=== PATIENT | male | born 1955 | race Caucasian/White ===

== ENCOUNTER 2024-05-23 08:25 | Emergency (ER) | payer MEDICARE, BC, SELFPAY ==
[2024-05-23 08:35] VITALS: BP 143/59; PULSE 74; RESP 16; TEMP 36.3; O2SAT 100
--- NOTE | 2024-05-23 08:48 | ED.SKABFB ---
HPI - Skin/Abscess/Foreign Bdy General Chief complaint: Skin/Abscess/Foreign Body Stated complaint: Right Leg/Skin Problem Time Seen by Provider: 05/23/24 08:49 Source: patient and RN notes reviewed Mode of arrival: ambulatory Limitations: no limitations History of Present Illness HPI narrative: 68-year-old male presents with concern for area of redness, tenderness, swelling to his right inner leg near his knee. He reports he has had issues of varicose veins in the past. He denies any injury or trauma to the area. Denies open skin. Denies itching. Reports that is uncomfortable but tender to touch. He denies fever, body aches, chills, sweats. MD complaint: other (redness and tenderness) Related Data Home Medications Medication Instructions Recorded Confirmed lisinopril 10 mg tablet mg 05/23/24 simvastatin 80 mg tablet mg 05/23/24 Allergies Allergy/AdvReac Type Severity Reaction Status Date / Time No Known Allergies Allergy Verified 05/23/24 08:38 Review of Systems Review of Systems: CONSTITUTIONAL: Denies malaise, chills, sweats, or fever. EYES: Denies redness, or discharge. CARDIOVASCULAR: Denies chest pain, palpitations, or edema. RESPIRATORY: Denies cough or dyspnea. SKIN: Reports area of redness, tenderness to the left leg MUSCULOSKELETAL: Denies joint pain or myalgia. NEUROLOGIC: Denies headache. All systems reviewed & are unremarkable except as noted in HPI and below PMFSH Comments At time of signature, agree with nursing past medical, surgical, social and family history. There is no relevant family history pertinent to the presenting complaint Exam Narrative: GENERAL: Well-appearing, well-nourished, and in no acute distress. HEAD: Normocephalic, atraumatic. EYES: PERRLA, conjunctivae clear, and EOMI. ENT: Mucous membranes moist. NECK: Supple. No lymphadenopathy CHEST: Clear to auscultation. No respiratory distress. HEART: Regular rate and rhythm. SKIN: Warm, dry. Palpable varicose veins with surrounding induration, erythema, tenderness noted to the medial right leg above the knee, 1 small similar area below the knee noted NEURO: Alert and oriented x3. PSYCH: Normal mood and affect Course Course Emergency Course: Patient is aware of diagnosis, understands and agrees to treatment plan. Anticipatory guidance given. Patient agrees to follow-up as directed and is aware of reasons to seek care at the emergency department. Portions of this record may have been created with voice recognition software Level of Care: Express Care Visit Vital Signs Vital signs: Vital Signs Temperature 97.4 F L 05/23/24 08:35 Pulse Rate 74 05/23/24 08:35 Respiratory Rate 16 05/23/24 08:35 Blood Pressure 143/59 H 05/23/24 08:35 Pulse Oximetry 100 05/23/24 08:35 Oxygen Delivery Room Air 05/23/24 08:35 Temperature 97.4 F L 05/23/24 08:35 Pulse Rate 74 05/23/24 08:35 Respiratory Rate 16 05/23/24 08:35 Blood Pressure 143/59 H 05/23/24 08:35 Pulse Oximetry 100 05/23/24 08:35 Oxygen Delivery Room Air 05/23/24 08:35 Reviewed. MDM - Skin/Abscess/Foreign Bdy MDM Narrative Medical decision making narrative: Does not appear at this time to be erythema multiforme, bullous, SJS, TEN; no evidence at this time to suggest RMSF, endocarditis or Lyme disease; patient looks well, nontoxic and is tolerating oral intake; no neurologic signs or symptoms; no headache, photophobia or neck pain; afebrile; appropriate for initial outpatient treatment; discussed the importance of follow-up, patient agrees; question, viral exanthema, contact dermatitis, allergic dermatitis, eczema, urticaria, cellulitis, phlebitis, thrombophlebitis. No soft palate or uvula edema, no tongue, lip edema or other mucosal involvement, no respiratory compromise, no stridor, no wheezing, no wheezing, no history of syncope, no hypotension, no nausea, vomiting, or diarrhea. Instructed patient to go to nearest ER imm
== END 2024-05-23 09:02 | disposition home or self-care (01) ==
PROVIDERS: Emergency Provider Nurse Practitioner; PCP Hospitalist
DX: I80.01 Phlebitis and thrombophlebitis of superficial vessels of right lower extremity (principal); E78.00 Pure hypercholesterolemia, unspecified; I10 Essential (primary) hypertension
CPT/HCPCS: 99203; G0463

== ENCOUNTER 2025-02-15 09:20 | Emergency (ER) | payer MEDICARE, BC, SELFPAY ==
--- OUTSIDE RECORDS SUMMARY | 2025-02-16 13:55 | XMS_ITS | Referral Summary ---
Author Organization [facility] Address [address] [place] [phone] Phone Care Team Providers Care Underwriting Service Representative Name Role Phone Jono Fuller MD Primary Care Provider [phone] Allergies No known active allergies Medications cholecalcifero l (VITAMIN D-3) 25 mcg (1,000 unit) tablet Take 2 tablets (2,000 Units total) by mouth daily 8 Active ibuprofen (ADVIL,MOTRIN) 600 mg tablet Take 1 tablet (600 mg total) by mouth as needed 4 Active simvastatin (ZOCOR) 80 mg tablet TAKE 1 TABLET(80 MG) BY MOUTH DAILY 100 tablet 1 5 Active tadalafiL (CIALIS) 20 mg tablet Take 1 tablet (20 mg total) by mouth daily as needed for erectile dysfunction 30 tablet 3 5 03/06/20 25 Active lisinopriL (PRINIVIL,ZEST RIL) 10 mg tablet Take 1 tablet (10 mg total) by mouth daily 90 tablet 1 5 Active tadalafiL (CIALIS) 20 mg tablet Take 1 tablet (20 mg total) by mouth daily as needed for erectile dysfunction 30 tablet 3 4 02/05/20 25 Discontin ued(Reord er) lisinopriL (PRINIVIL,ZEST RIL) 10 mg tablet Take 1 tablet (10 mg total) by mouth daily 90 tablet 5 02/05/20 25 Discontin ued(Reord er) Active Problems Problem Noted Date Diagnosed Date Pain in right leg 06/05/2024 Assessment & Plan (06/05/2024 9:17 AM CDT): R medial thigh. Varicosities. Risk factors of sedentary lifestyle and tobacco use. DDx of recurrent superficial phlebitis vs. superficial DVT vs. possible malignancy (less likely) Plan: US ordered 06/05. Return precautions given. Superficial phlebitis 06/05/2024 Assessment & Plan (06/05/2024 9:17 AM CDT): See A&P for R leg pain Encounter for Medicare annual wellness exam 05/18 Assessment & Plan (06/05/2024 9:19 AM CDT): Reassuring exam today. Plan: Provided forms for advance directive planning. F/u 1 yr of prn Other situational type phobia - driving 05/25/20 Assessment & Plan (05/25/2022 11:08 AM CDT): Discussed with patient, patient reports symptoms with driving, somewhat related around concern for weakness of legs and ability to maintain pressure on brake pedal, fear of imbalance at train station Discussed that patient may benefit from talk therapy; liver options include medical therapy, though patient would prefer to reduce medications Acute bilateral low back pain without sciatica 0 11/22/2016 Overview (11/25/2021): 12/03 ARR MRI, NSURG 12/03 MRI LSPINE->At L4-5 there is mild disc desiccation and mild disc space narrowing with prominent disc bulging and a more focal central and left-sided disc protrusion. There is moderate facet disease. There is prominent thecal sac compression with moderate lateral recess and foraminal stenosis, worse to the left. Neck pain 11/22/2016 Overview (11/25/2021): 12/03 ARR MRI, NSURG 12/03 MRI CSPINE->Patient has had anterior cervical fusion from C4 to C7. There is degenerative retrolisthesis of C3 on C4 associated with cord compressing stenosis and focal signal abnormality in the cord. Vitamin B12 deficiency (non anemic) 02/27/2016 Overview (11/25/2021): 03/01 B12 LOW-NL (323)->- PLAN CONT'D MONITORING 01/31 B12 LOW-NL (341) 03/03 B12 323->- PLAN CONT'D MONITORING 03/04 B12 333 06/05 B12 394 Vitamin D deficiency 02/27/2016 Overview (11/25/2021): 03/01 VIT D LOW (9)->START VIT D 2000 UNITS DAILY 01/31 D LOW (14)->INCR TO 4000 02/01 D 25->INCR TO 2K 03/04 D 34 Prediabetes 02/06/2012 Overview (11/25/2021): FBS -- 01/26 103 -- 03/30 113 -- 03/31 99 -- 01/31 113 -- 03/03 99 -- 03/04 108 -- 06/05 116 A1C -- 03/03 5.7 Assessment & Plan (11/29/2023 12:36 PM RETAIL LOAN ORIGINATOR ASSISTANT): Stable, well controlled; most recent CMP demonstrated serum glucose at 1:05 a.m. which is mildly prediabetic Will continue to monitor Benign hypertension 10/27/2011 Overview (11/25/2021): RECOMMENDED HOME MONITORING TO SBP GOAL <140 AND DBP GOAL <90 Assessment & Plan (06/05/2024 9:06 AM CDT): Chronic. Stable. Plan: Continue Lisinopril 10mg daily Recommend smoking cessation Assessment & Plan (11/29/2023 12:35 PM RETAIL LOAN ORIGINATOR ASSISTANT): Stable, well controlled; blood pressure at goal; no chest pain or pressure Continue lisinopril 10 mg daily Assessment & Plan (05/26/2023 9:46 AM CDT): Stable, well controlled, blood pressure at goal today Continue lisinopril 10 mg daily Assessment & Plan (11/26/2022 3:28 PM RETAIL LOAN ORIGINATOR ASSISTANT): Stable, well contorlled; bp at target Continue lisionpril 10 mg daily Assessment & Plan (05/25/2022 11:07 AM CDT): Stable, blood pressure mildly elevated on initial check, as well as on recheck; patient reports no headaches, chest pain under symptoms No side effects from medication Continue quinapril 20 mg daily Blood Pressure Follow-up: Lifestyle modifications education provided on sodium reduction, increase physical activity, weight reduction and smoking cessation. Assessment & Plan (12/15/2021 2:00 PM RETAIL LOAN ORIGINATOR ASSISTANT): Well controlled; blood pressure at target today No episodes orthostatics, chest pain or headaches Continue quinapril 20 mg daily Degeneration of cervical intervertebral disc 08/2012 Overview (11/25/2021): 2004 S/P C SPINE DECOMPRESSION Erectile dysfunction due to arterial insufficien cy 10/27/2011 Overview (11/25/2021): MANAGING WITH VIAGRA 10/28 ARRANGED LABS, SAMPLED CIALIS 01/26 TESTOSTERONE 254 (NL 200-800) / PROLACTIN NL / TSH NL Assessment & Plan (06/05/2024 9:09 AM CDT): Previous testosterone, prolactin & TSH wnl. Risk factors of HTN, tobacco use and prior dyslipidemia. Plan: Recommend smoking cessation Continue Tadalafil 20mg daily prn Assessment & Plan (11/29/2023 12:35 PM RETAIL LOAN ORIGINATOR ASSISTANT): Stable, well controlled; good response to Cialis 20 mg; will refill today Assessment & Plan (05/26/2023 9:46 AM CDT): Well controlled with cialis Continue Cialis 20 mg daily as needed Assessment & Plan (11/26/2022 3:28 PM RETAIL LOAN ORIGINATOR ASSISTANT): Continues to have ED at baseline, good response to PDE5 inhibitors Start tadalafil 20 mg prn Hyperlipidemia LDL goal <130 10/27/2011 Overview (11/25/2021): 01/26 TOTAL 126 - LDL 65 - HDL 43 - TG 90->ON SIMVASTATIN 80 MG DAILY 01/31 [id number] 03/03 [id number] 03/04 [id number] 06/05 [id number] Assessment & Plan (06/05/2024 9:07 AM CDT): Chronic. 06/01 LDL at goal <70. Plan: Continue simvastatin 80mg daily Assessment & Plan (11/29/2023 12:35 PM RETAIL LOAN ORIGINATOR ASSISTANT): Stable, well controlled; LDL at goal; HDL low Continue simvastatin 80 mg daily Assessment & Plan (05/26/2023 9:46 AM CDT): Most recent lipid panel demonstrated elevated triglycerides of low HDL; LDL go, decreased from prior Patient given education to help increase HDL cholesterol; which also help with triglyceride levels Assessment & Plan (11/26/2022 3:27 PM RETAIL LOAN ORIGINATOR ASSISTANT): Stable, well controlled; LDL at target; no side effects from medication Continue Simvastatin 80 mg daily Assessment & Plan (05/25/2022 11:10 AM CDT): Well controlled, lipids in triglycerides at target Continue simvastatin 80 mg daily Assessment & Plan (12/15/2021 4:38 PM RETAIL LOAN ORIGINATOR ASSISTANT): Stable, well controlled; continue simvastatin 80 mg daily Tobacco use disorder 10/27/2011 Overview (11/25/2021): 10/28 COUNSELED TO QUIT Assessment & Plan (06/05/2024 9:10 AM CDT): Chronic. 1ppd. Pt differs trial of cessation at this time. Plan: Supportive care Recommend tobacco use cessation. Assessment & Plan (11/29/2023 12:35 PM RETAIL LOAN ORIGINATOR ASSISTANT): Not well controlled; continues to smoke about 1 pack per day; has some thoughts on quitting, but no serious plans at this time Patient recognizes that breathing and coughing would be improved with quitting Has quit prior for 7 months; but restarted; patient endorses that smokes in the home which makes quitting more difficult Continue to encourage work towards smoking cessation; discussed lung cancer screening options with patient Assessment & Plan (05/26/2023 8:36 AM CDT): Continues to smoke; getting closer Cutting back; now in mindset of being tired of smoking -no particular changes -working on habits, has game plan to quit while is traveling Assessment & Plan (11/26/2022 3:30 PM RETAIL LOAN ORIGINATOR ASSISTANT): Not well controlled; continues to smoke about 15 cigarettes per day -has some thoughts in back of head regarding cessation Discussed health benefits of smoking cessation, including improved blood pressure control and improvement in ED Patient still thinking about Lung Cancer Screening Assessment & Plan (05/25/2022 11:09 AM CDT): Discussed efforts to quit in order to reduce long-term health risk associated with tobacco use Patient is working on cutting back, not ready for any medical therapy at this time Will continue to monitor and encourage healthy changes Discussed with patient lung cancer screening, this time patient would like to think about further imaging Assessment & Plan (12/15/2021 4:39 PM RETAIL LOAN ORIGINATOR ASSISTANT): To smoke about 1/2 pack per day; has difficulty with quitting, has tried cold turkey in the past with no success; use of nicotine gum with some relief Encouraged patient continue to work on smoking cessation, will continue discussed with patient would benefit from nicotine replacement therapy Immunizations Immunization Administration Dates Next Due Influenza, Quadrivalent, Spl it, Preservative Free, Intramuscular 07/08/2020 Influenza, Trivalent, IM (MDV) ,07/17/2016,07/17/2015,07/17,08/02/2013,07/26/2012,09/16/2011 Influenza, Unspecified 01/05/2024(Deferr ed: Patient Refused),07/27/2023(Deferred: Patient Refused),06/17/2022 Pneumococcal Conjugate Pcv20 11/25/2022 Social History Tobacco Use Types Packs/Day Years Used Date Smoking Tobacco: Every Day Cigarettes 0.8 25 Smokeless Tobacco: Never Tobacco Cessation:Ready to Q uit: Not Asked; Counseling Given: Not Answered AUDIT-C Answer Date Recorded Q1: How often do you have a drink containing alc ohol? 2-4 times a month 11/25/2022 Q2: How many drinks containi ng alcohol do you have on a typical day when you are drinking? 3 or 4 11/25/2022 Frequency of Binge Drinking Not on file 06/2023 PHQ-2 Answer Date Recorded PHQ-2 Total Score (If total score is 3 or more points, staff should administer the PHQ-9) 0 06/05/2024 Exercise Vital Sign Answer Date Recorde d On average, how many days pe r week do you engage in moderate to strenuous exercise (like a brisk walk)? 0 days 11/25/2022 On average, how many minutes do you engage in exercise at this level? 0 min 11/25/2022 Personal Safety Answer Date Recorded Getting School Help Needed Not on file 10/21 Sex and Gender Information Value Date Recorded Sex Assigned at Not on file Legal Sex Male 4:01 PM RETAIL LOAN ORIGINATOR ASSISTANT Gender Identity Not on file Sexual Orientation Not on file Last Filed Vital Signs Vital Sign Reading Time Taken Comments Blood Pressure 120/70 06/05/2024 8:20 AM CDT Pulse 72 06/05/2024 8:20 AM CDT Temperature 36.6 C (97.8 F) 06/05/2024 8:20 AM CDT Respiratory Rate 16 06/05/2024 8:20 AM CDT Oxygen Saturation 98% 06/05/2024 8:20 AM CDT Inhaled Oxygen Concentration - - Weight 88.9 kg (196 lb) 06/05/2024 8:20 AM CDT Height 177.8 cm (5' 10 ) 06/05/2024 8:20 AM CDT Body Mass Index 28.12 06/05/2024 8:20 AM CDT Plan of Treatment Not on file Procedures Procedure Name Priority Date/Time Associated Diagnosis Comments PSA SCREEN Routine 06/01/2024 9:25 AM CDT Screening PSA (prostate specific antigen) US ABDOMINAL AORTIC ANEURYSM SCREENING Schedule Routine, Read Routine (OP Routine) 08/02/2023 8:11 AM CDT Tobacco use disorder HEPATITIS C ANTIBODY Routine 11/25/2021 12:30 PM RETAIL LOAN ORIGINATOR ASSISTANT COLONOSCOPY Routine 06/02/2020 from Last 3 Months or Most Recently Relevant to Health Maintenance Results * PSA screen (06/01/2024 9:25 AM CDT) PSA-Total 0.42 <=5.40 ng/mL Comment: Interpretive Data AGE SEX REFERENCE INTERVAL 0 minutes-150 years Female None 0 minutes-49 years Male None 50-59 years Male 0-3.90 60-69 years Male 0-5.40 70-79 years Male 0-6.20 80-150 years Male 0-6.20 The Mary PSA Total assay procedure was used. Results from different manufacturers or methods may not be comparable. Serial testing should be performed using the same method. Current interpretive data last revised 22. Testing performed by: [facility], [address] [place] [address], [place]., [address] Blood 06/01/2024 9:25 AM CDT 06/01/2024 1:11 PM CDT us Jono Fuller MD LAB BLOOD ORDERABLES Tiffanie giles Result MIGDALIA ALEMAN (NUNN) 1 [facility] Department of [employer] [place] [address] * US Abdominal Aortic Aneurysm Screening (08/02/2023 8:11 AM CDT) Anatomical Region Laterality Modality Abdomen Ultrasound 08/02/2023 9:23 AM CDT Narrative 08/02/2023 9:24 AM CDT EXAM DESCRIPTION: US ABDOMINAL AORTIC ANEURYSM SCREENING REASON FOR STUDY: history of tobaco use TECHNIQUE: Grayscale images acquired of the aorta and stored on PACS. Selected color Doppler and spectral images recorded. COMPARISON: None. FINDINGS: AORTIC CALIBER MAXIMAL PROXIMAL: 3.2 cm. MID: 2.1 x 1.7 cm. DISTAL: 1.7 x 1.7 cm. ILIAC DIAMETER RIGHT: 1.2 x 1.4 cm. LEFT: 1.1 x 1.3 cm. OTHER: No other significant finding. IMPRESSION: Mild dilation of the proximal abdominal aorta. REFERENCE: Please see below follow up recommendations for abdominal aortic aneurysm surveillance per Society for Vascular Surgery Guidelines: < 2.5 cm No follow up necessary 2.52.9 cm Recommended ultrasound follow up every 10 years 3.0-3.9 cm Recommended ultrasound follow up every 3 years 4.0-4.9 cm Recommended ultrasound follow up every 12 months, vascular surgery consult 5.0-5.4 cm Recommended ultrasound follow up every 6 months, vascular surgery consult >= 5.5 cm Referral to vascular surgeon Based upon Society for Vascular Surgery Guidelines: J Vasc Surgery 2008 50: [id number]; updated Oct 2017 J Vasc Surgery 67:277 THIS IS AN ELECTRONICALLY VERIFIED FINAL REPORT 08/02/2023 9:24 AM - Electronically signed by Tal Grant M.D. CH: Report ID: [id number] Reading Location: [id number] Procedure Note Tal Grant Jr., MD - 08/02/2023 EXAM DESCRIPTION: US ABDOMINAL AORTIC ANEURYSM SCREENING REASON FOR STUDY: history of tobaco use TECHNIQUE: Grayscale images acquired of the aorta and stored on PACS.Selected color Doppler and spectral images recorded. COMPARISON: None. FINDINGS: AORTIC CALIBER MAXIMAL PROXIMAL: 3.2 cm. MID: 2.1 x 1.7 cm. DISTAL: 1.7 x 1.7 cm. ILIAC DIAMETER RIGHT: 1.2 x 1.4 cm. LEFT: 1.1 x 1.3 cm. OTHER: No other significant finding. IMPRESSION: Mild dilation of the proximal abdominal aorta. REFERENCE: Please see below follow up recommendations for abdominal aortic aneurysm surveillance per Society for Vascular Surgery Guidelines: < 2.5 cm No follow up necessary 2.52.9 cm Recommended ultrasound follow up every 10 years 3.0-3.9 cm Recommended ultrasound follow up every 3 years 4.0-4.9 cm Recommended ultrasound follow up every 12 months, vascularsurgery consult 5.0-5.4 cm Recommended ultrasound follow up every 6 months, vascularsurgery consult >= 5.5 cm Referral to vascular surgeon Based upon Society for Vascular Surgery Guidelines: J Vasc Surgery 2009Oct 50: [id number]; updated Oct 2017 J Vasc Surgery 67:277 THIS IS AN ELECTRONICALLY VERIFIED FINAL REPORT 08/02/2023 9:24 AM - Electronically signed by Tal Grant M.D. CH: Report ID: [id number] Reading Location: [place] [id number] us Jono Fuller MD [facility]ED[place] Final R esult * Hepatitis C antibody (11/25/2021 12:30 PM RETAIL LOAN ORIGINATOR ASSISTANT) Hep C Ab Nonreactive Nonreactive MIGDALIA ALEMAN (CHARLI) Comment: Interpretive Data Nonreactive: Antibodies to HCV not detected. Does NOT exclude the possibility of recent exposure to HCV. Equivocal: Equivocal for HCV antibodies. Supplemental molecular testing will be automatically performed to determine infection status in accordance with current CDC screening recommendations. Reactive: Positive for HCV antibodies. This may represent current or past HCV infection. Supplemental molecular testing will be automatically performed to determine current infection status in accordance with current CDC screening recommendations. Interpretive data was last revised on 2020. Testing performed by: [facility], [address] [place] [address], [place]., [address] Blood 11/25/2021 12:3 0 PM RETAIL LOAN ORIGINATOR ASSISTANT 11/25/2021 2:58 PM RETAIL LOAN ORIGINATOR ASSISTANT us Jono Fuller MD LAB MICROBIOLOGY - GENERA L ORDERABLES Edited Result - Final [facility] CHARLI) 1 [facility] [place] [address] * Colonoscopy (06/02/2020) Anatomical Region Laterality Modality Other us Historical Provider ENDOSCOPY PROCEDURES Tiffanie l Result from Last 3 Months or Most Recently Relevant to Health Maintenance Insurance [facility] [employer] MEDICARE MEDICARE [facility] [place] [address] [place] [address] MEDICARE [facility] [employer] Care Teams Underwriting Service Representative Relationship Specialty Start Date End Date [place] [id number] PCP - General Family Medicine 09/22/21
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
--- OUTSIDE RECORDS SUMMARY | 2025-02-16 13:55 | XMS_ITS | Clinical Summary ---
Author Organization [facility] Address [address] [place] [address] Care Team Providers Care Scrap Bunch Maker Name Role Phone Tavares Sanders MD Unavailable [phone] Naeem Chau MD Primary Care Provider [phone] Source Comments [facility],non-owned Affiliates and Associated Physician Practices is amultiple site organization consisting of ambulatory clinics and hospital sitesin [place], [place], [place] and [place]. This disclosure is being madepursuant to the Care Everywhere program and may not contain all information available regarding this patient. Last updated 18.[facility] Medications * Be aware that medications may not be up to date on this document. Alwaysverify current medications with the patient. quinapril (ACCUPRIL) 20 MG tablet Take 20 mg by mouth once daily. Active simvastatin (ZOCOR) 80 MG tablet Take 80 mg by mouth at bedtime. Active Social History Tobacco Use Types Packs/Day Years Used Date Smoking Tobacco: Every Day Alcohol Use Standard Drinks/Week Comments Yes 0 (1 standard drink = 0.6 oz pur e alcohol) Sex and Gender Information Value Date Recorded Sex Assigned at Not on file Legal Sex Male 1:50 PM EXAMINER RATING CLERK Gender Identity Not on file Sexual Orientation Not on file Last Filed Vital Signs Vital Sign Reading Time Taken Comments Blood Pressure - - Pulse - - Temperature - - Respiratory Rate - - Oxygen Saturation - - Inhaled Oxygen Concentration - - Weight 90.7 kg (200 lb) 04/27/2012 9:43 AM CDT Height 177.8 cm (5' 10 ) 04/27/2012 9:43 AM CDT Body Mass Index 28.7 04/27/2012 9:43 AM CDT Plan of Treatment Health Maintenance Due Date Last Done Comments COLOGUARD (AGES 45-75) - COL ON CA SCREENING 1955 COLON MONITORING 1955 COLONOSCOPY - COLON CA SCREENING [address] CT COLONOGRAPHY - COLON CA SCREENING 1957 Colorectal Cancer Screening 1957 FIT - COLON CA SCREENING 1957 FLEX SIG - COLON CA SCREENING 1957 HEPATITIS C SCREENING 06/26/1975 DTAP/TDAP/TD VACCINES (1 - Tdap) 1976 PNEUMOCOCCAL VACCINE 50+ (1 of 1 - PCV) 2007 ZOSTER VACCINE (1 of 2) 2007 AAA SCREENING 2022 COVID-19 VACCINE ( - 2023-2 5 season) 2024 DEPRESSION SCREENING 10/17/2024 INFLUENZA VACCINE (Season Ended) 2025 Respiratory Syncytial Virus (RSV) Vaccine Pt: or over 60 yrs (1 - 1-dose 75+ series) 2032 HEPATITIS B VACCINE Aged Out No longe r eligible based on patient's age to complete this topic HIB VACCINE Aged Out No longer eligi ble based on patient's age to complete this topic HPV VACCINE Aged Out No longer eligi ble based on patient's age to complete this topic MENINGOCOCCAL (Group B) VACC INE SHARED DECISION-MAKING Aged Out No longer eligibl e based on patient's age to complete this topic MENINGOCOCCAL GROUPS A/C/Y/W VACCINE Aged Out No longer eligible b ased on patient's age to complete this topic Insurance [facility] Care Teams Scrap Bunch Maker Relationship Specialty Start Date End Date Naeem Chau MD [address] [place] [address] PCP - General Internal Medicine 04/27/12 Tavares Sanders MD Orthopedic Surgery 04/27/12
--- OUTSIDE RECORDS SUMMARY | 2025-02-16 13:55 | XMS_ITS | Clinical Summary ---
Author Organization [facility] Address [address] [place] [id number] Phone Care Team Providers Care Forming Yardage Control Operator Name Role Phone Jono Fuller MD Primary Care Provider [phone] Allergies No known active allergies Medications cholecalcifero [...] 5.7 Assessment & Plan (11/29/2023 12:36 PM ASSEMBLER CATERPILLAR SPIDER): Stable, well controlled; most recent CMP demonstrated serum glucose at 1:05 a.m. which is mildly prediabetic Will continue to monitor Benign hypertension 10/27/2011 Overview (11/25/2021): RECOMMENDED HOME MONITORING TO SBP GOAL <140 AND DBP GOAL <90 Assessment & Plan (06/05/2024 9:06 AM CDT): Chronic. Stable. Plan: Continue Lisinopril 10mg daily Recommend smoking cessation Assessment & Plan (11/29/2023 12:35 PM ASSEMBLER CATERPILLAR SPIDER): Stable, well controlled; blood pressure at goal; no chest pain or pressure Continue lisinopril 10 mg daily Assessment & Plan (05/26/2023 9:46 AM CDT): Stable, well controlled, blood pressure at goal today Continue lisinopril 10 mg daily Assessment & Plan (11/26/2022 3:28 PM ASSEMBLER CATERPILLAR SPIDER): Stable, well contorlled; bp at target Continue [...] cessation. Assessment & Plan (12/15/2021 2:00 PM ASSEMBLER CATERPILLAR SPIDER): Well controlled; blood pressure at target today [...] prn Assessment & Plan (11/29/2023 12:35 PM ASSEMBLER CATERPILLAR SPIDER): Stable, well controlled; good response to Cialis 20 mg; will refill today Assessment & Plan (05/26/2023 9:46 AM CDT): Well controlled with cialis Continue Cialis 20 mg daily as needed Assessment & Plan (11/26/2022 3:28 PM ASSEMBLER CATERPILLAR SPIDER): Continues to have ED at baseline, good response to PDE5 inhibitors Start tadalafil 20 mg prn Hyperlipidemia LDL goal <130 10/27/2011 Overview (11/25/2021): 01/26 TOTAL 126 - LDL 65 - HDL 43 - TG 90->ON SIMVASTATIN 80 MG DAILY 01/31 [id number] 03/03 [id number] 03/04 [id number] 06/05 [id number] Assessment & Plan (06/05/2024 9:07 AM CDT): Chronic. 06/01 LDL at goal <70. Plan: Continue simvastatin 80mg daily Assessment & Plan (11/29/2023 12:35 PM ASSEMBLER CATERPILLAR SPIDER): Stable, well controlled; LDL at goal; HDL low Continue simvastatin 80 mg daily Assessment & Plan (05/26/2023 9:46 AM CDT): Most recent lipid panel demonstrated elevated triglycerides of low HDL; LDL go, decreased from prior Patient given education to help increase HDL cholesterol; which also help with triglyceride levels Assessment & Plan (11/26/2022 3:27 PM ASSEMBLER CATERPILLAR SPIDER): Stable, well controlled; LDL at target; no side effects from medication Continue Simvastatin 80 mg daily Assessment & Plan (05/25/2022 11:10 AM CDT): Well controlled, lipids in triglycerides at target Continue simvastatin 80 mg daily Assessment & Plan (12/15/2021 4:38 PM ASSEMBLER CATERPILLAR SPIDER): Stable, well controlled; continue simvastatin 80 mg daily Tobacco use disorder 10/27/2011 Overview (11/25/2021): 10/28 COUNSELED TO QUIT Assessment & Plan (06/05/2024 9:10 AM CDT): Chronic. 1ppd. Pt differs trial of cessation at this time. Plan: Supportive care Recommend tobacco use cessation. Assessment & Plan (11/29/2023 12:35 PM ASSEMBLER CATERPILLAR SPIDER): Not well controlled; continues to smoke about [...] traveling Assessment & Plan (11/26/2022 3:30 PM ASSEMBLER CATERPILLAR SPIDER): Not well controlled; continues to smoke about [...] imaging Assessment & Plan (12/15/2021 4:39 PM ASSEMBLER CATERPILLAR SPIDER): To smoke about 1/2 pack per day; [...] Refused),07/27/2023(Deferred: Patient Refused),06/17/2022 Pneumococcal Conjugate Pcv20 11/25/2022 Surgical History Surgery Date Site/Laterality Comments NECK SURGERY 11/2018, 03/2017, 07/2004 SPINE SURGERY 11/2018,03/2017,07/2004 Medical History Medical History Date Comments Covid 04/2022 Anxiety 2004 Cataract 2006 Hypertension 1999 Family History Medical History Relation Name Comments Heart attack Father Marcello Paz Heart disease Father Marcello Paz Cancer Mother Rina Paz Colon cancer Mother Rina Paz Colon cancer Sister 1 Cancer Sister 2 Keyla Lennon Relation Name Status Comments Father Marcello Paz (Age 71) Mother Rina Paz (Age 70) Sister 1 Alive Sister 2 Keyla Lennon Social History Tobacco Use Types Packs/Day Years [...] on file Legal Sex Male 4:01 PM ASSEMBLER CATERPILLAR SPIDER Gender Identity Not on file Sexual Orientation Not on file Obstetrics History Last Filed Vital Signs Vital Sign Reading [...] 06/05/2024 8:20 AM CDT Plan of Treatment Health Maintenance Due Date Last Done Comments DTaP/Tdap/Td Vaccine (1 - Tdap) 1968 Zoster Vaccine (1 of 2) 2007 Covid-19 Vaccine (4 - 2023-2 5 season) 2024 09/23/2021, 02/17/2021, 01/29/2021 Colon Cancer Screening-Colonoscopy 06/02/20252019 Depression Screening 06/05/2025 06/05/2024, 11/29/2023, 05/26/2023, Additional history exists Fall Risk Assessment 06/05/2025 06/05/2024, 11/29/2023, 11/25/2022, Additional history exists Well Visit 65+ 06/05/2025 06/05/2024 Influenza Vaccine (Season Ended) 2025 06/17/2022, 09/23/2021, 07/08/2020, Additional history exists Prostate Cancer Screening-PSA 06/01/2026 06/01/2024, 11/25/2021 Hepatitis C Screening Completed 11/25/2021 Pneumococcal vaccine 65+ Completed 11/25/2022 Abdominal Aortic Aneurysm (A AA) Screen Completed 08/02/2023 Hepatitis B Screening Completed 06/01/2024 Procedures Procedure Name Priority Date/Time Associated Diagnosis Comments PSA SCREEN Routine 06/01/2024 9:25 AM CDT Screening PSA (prostate specific antigen) US ABDOMINAL AORTIC ANEURYSM SCREENING Schedule Routine, Read Routine (OP Routine) 08/02/2023 8:11 AM CDT Tobacco use disorder HEPATITIS C ANTIBODY Routine 11/25/2021 12:30 PM ASSEMBLER CATERPILLAR SPIDER COLONOSCOPY Routine 06/02/2020 from Last 3 Months [...] data last revised 22. Testing performed by: [facility], [address] [place] [address]., [id number] Blood 06/01/2024 9:25 AM CDT 06/01/2024 1:11 PM CDT us Jono Fuller MD LAB BLOOD ORDERABLES Tiffanie giles Result Performing Organization Address City/State/[facility] Co de Phone Number [facility] [place]) [address] [facility] [place] [address] * US Abdominal Aortic Aneurysm [...] Electronically signed by Tal Grant M.D. CH: [facility] Report ID: [id number] Reading Location: [id number] Procedure Note Tal Grant Jr., MD - [...] Electronically signed by Tal Grant M.D. CH: [facility] Report ID: [id number] Reading Location: [place] [address] Jono Fuller MD IM US PROCEDURES Final R esult * Hepatitis C antibody (11/25/2021 12:30 PM ASSEMBLER CATERPILLAR SPIDER) Hep C Ab Nonreactive Nonreactive MIGDALIA ALEMAN ([place]) Comment: Interpretive Data Nonreactive: Antibodies to HCV [...] last revised on 2020. Testing performed by: [facility], [address] [place] [address]., [id number] Blood 11/25/2021 12:3 0 PM ASSEMBLER CATERPILLAR SPIDER 11/25/2021 2:58 PM ASSEMBLER CATERPILLAR SPIDER Jono Fuller MD LAB MICROBIOLOGY - GENERA L ORDERABLES Edited Result - Final MIGDALIA ALEMAN ([place]) [address] [facility] [place] [address] * Colonoscopy (06/02/2020) Anatomical Region Laterality Modality Other Historical Provider ENDOSCOPY PROCEDURES Tiffanie l Result from Last 3 Months or Most Recently Relevant to Health Maintenance Insurance [facility] [place] [address] [place] [id number] MEDICARE [facility] FEDERAL MEDICARE [facility] Care Teams Forming Yardage Control Operator Relationship Specialty Start Date End Date [place] [id number] PCP - General Family Medicine 09/22/21
--- OUTSIDE RECORDS SUMMARY | 2025-02-28 08:38 | XMS_ITS | Referral Summary ---
Author Organization [facility] Address [address] [place] [address] Phone Care Team Providers Care Shape Carver Name Role Phone Jono Fuller MD Primary Care Provider [phone] Allergies No known active allergies Medications cholecalcifero [...] 5.7 Assessment & Plan (11/29/2023 12:36 PM CERTIFIED SURGICAL TECH/FIRST ASSISTANT): Stable, well controlled; most recent CMP demonstrated serum glucose at 1:05 a.m. which is mildly prediabetic Will continue to monitor Benign hypertension 10/27/2011 Overview (11/25/2021): RECOMMENDED HOME MONITORING TO SBP GOAL <140 AND DBP GOAL <90 Assessment & Plan (06/05/2024 9:06 AM CDT): Chronic. Stable. Plan: Continue Lisinopril 10mg daily Recommend smoking cessation Assessment & Plan (11/29/2023 12:35 PM CERTIFIED SURGICAL TECH/FIRST ASSISTANT): Stable, well controlled; blood pressure at goal; no chest pain or pressure Continue lisinopril 10 mg daily Assessment & Plan (05/26/2023 9:46 AM CDT): Stable, well controlled, blood pressure at goal today Continue lisinopril 10 mg daily Assessment & Plan (11/26/2022 3:28 PM CERTIFIED SURGICAL TECH/FIRST ASSISTANT): Stable, well contorlled; bp at target [...] cessation. Assessment & Plan (12/15/2021 2:00 PM CERTIFIED SURGICAL TECH/FIRST ASSISTANT): Well controlled; blood pressure at target [...] prn Assessment & Plan (11/29/2023 12:35 PM CERTIFIED SURGICAL TECH/FIRST ASSISTANT): Stable, well controlled; good response to Cialis 20 mg; will refill today Assessment & Plan (05/26/2023 9:46 AM CDT): Well controlled with cialis Continue Cialis 20 mg daily as needed Assessment & Plan (11/26/2022 3:28 PM CERTIFIED SURGICAL TECH/FIRST ASSISTANT): Continues to have ED at baseline, good response to PDE5 inhibitors Start tadalafil 20 mg prn Hyperlipidemia LDL goal <130 10/27/2011 Overview (11/25/2021): 01/26 TOTAL 126 - LDL 65 - HDL 43 - TG 90->ON SIMVASTATIN 80 MG DAILY 01/31 [id number] 03/03 [id number] 03/04 [id number] 06/05 [id number] Assessment & Plan (06/05/2024 9:07 AM CDT): Chronic. 06/01 LDL at goal <70. Plan: Continue simvastatin 80mg daily Assessment & Plan (11/29/2023 12:35 PM CERTIFIED SURGICAL TECH/FIRST ASSISTANT): Stable, well controlled; LDL at goal; HDL low Continue simvastatin 80 mg daily Assessment & Plan (05/26/2023 9:46 AM CDT): Most recent lipid panel demonstrated elevated triglycerides of low HDL; LDL go, decreased from prior Patient given education to help increase HDL cholesterol; which also help with triglyceride levels Assessment & Plan (11/26/2022 3:27 PM CERTIFIED SURGICAL TECH/FIRST ASSISTANT): Stable, well controlled; LDL at target; no side effects from medication Continue Simvastatin 80 mg daily Assessment & Plan (05/25/2022 11:10 AM CDT): Well controlled, lipids in triglycerides at target Continue simvastatin 80 mg daily Assessment & Plan (12/15/2021 4:38 PM CERTIFIED SURGICAL TECH/FIRST ASSISTANT): Stable, well controlled; continue simvastatin 80 mg daily Tobacco use disorder 10/27/2011 Overview (11/25/2021): 10/28 COUNSELED TO QUIT Assessment & Plan (06/05/2024 9:10 AM CDT): Chronic. 1ppd. Pt differs trial of cessation at this time. Plan: Supportive care Recommend tobacco use cessation. Assessment & Plan (11/29/2023 12:35 PM CERTIFIED SURGICAL TECH/FIRST ASSISTANT): Not well controlled; continues to smoke [...] traveling Assessment & Plan (11/26/2022 3:30 PM CERTIFIED SURGICAL TECH/FIRST ASSISTANT): Not well controlled; continues to smoke [...] imaging Assessment & Plan (12/15/2021 4:39 PM CERTIFIED SURGICAL TECH/FIRST ASSISTANT): To smoke about 1/2 pack per [...] on file Legal Sex Male 4:01 PM CERTIFIED SURGICAL TECH/FIRST ASSISTANT Gender Identity Not on file Sexual [...] HEPATITIS C ANTIBODY Routine 11/25/2021 12:30 PM CERTIFIED SURGICAL TECH/FIRST ASSISTANT COLONOSCOPY Routine 06/02/2020 from Last 3 [...] data last revised 22. Testing performed by: [facility], [address] [place] [address], [place]., [address] Blood 06/01/2024 9:25 AM CDT 06/01/2024 1:11 PM CDT us Jono Fuller MD LAB BLOOD ORDERABLES Tiffanie giles Result MIGDALIA ALEMAN ([place]) [address] [facility] [place] [address] * US Abdominal Aortic Aneurysm [...] by Tal Grant M.D. CH: Report ID: [id number] Reading Location: [id number] Procedure Note Tal Grant Jr., MD - [...] by Tal Grant M.D. CH: Report ID: [id number] Reading Location: [place] [address] us Jono Fuller MD [facility] US PROCEDURES Final R esult * Hepatitis C antibody (11/25/2021 12:30 PM CERTIFIED SURGICAL TECH/FIRST ASSISTANT) Hep C Ab Nonreactive Nonreactive MIGDALIA [...] last revised on 2020. Testing performed by: [facility], [address] [place] [address], [place]., [address] Blood 11/25/2021 12:3 0 PM CERTIFIED SURGICAL TECH/FIRST ASSISTANT 11/25/2021 2:58 PM CERTIFIED SURGICAL TECH/FIRST ASSISTANT us Jono Fuller MD LAB MICROBIOLOGY - GENERA L ORDERABLES Edited Result - Final [facility]) [address] [facility] Department [place] [address] * Colonoscopy (06/02/2020) Anatomical Region Laterality Modality Other us Historical Provider ENDOSCOPY PROCEDURES Tiffanie l Result from Last 3 Months or Most Recently Relevant to Health Maintenance Insurance [facility] FEDERAL MEDICARE MEDICARE [facility] [place] [address] MEDICARE [facility] FEDERAL Care Teams Shape Carver Relationship Specialty Start Date End [place] [address] PCP - General Family Medicine 09/22/21
--- OUTSIDE RECORDS SUMMARY | 2025-02-28 08:38 | XMS_ITS | Clinical Summary ---
Author Organization [facility] Address [address] [place] [address] Care Team Providers Care Computer Science Teacher Name Role Phone Tavares Sanders MD Unavailable [phone] Naeem Chau MD Primary Care Provider [phone] Source Comments [facility],non-owned Affiliates and Associated Physician Practices is amultiple site organization consisting of ambulatory clinics and hospital sitesin [place], [place], [place] and [place]. This disclosure is being madepursuant to the Care Everywhere program and may not contain all information available regarding this patient. Last updated 18.[facility] Medications * Be aware that medications may [...] on file Legal Sex Male 1:50 PM PACU NURSE Gender Identity Not on file Sexual Orientation [...] patient's age to complete this topic Insurance [facility] Care Teams Computer Science Teacher Relationship Specialty Start Date End Date Naeem Chau MD [address] [place] [address] PCP - General Internal Medicine 04/27/12 Tavares Sanders MD Orthopedic Surgery 04/27/12
--- OUTSIDE RECORDS SUMMARY | 2025-02-28 08:38 | XMS_ITS | Clinical Summary ---
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 Gender Identity Not on file Sexual Orientation [...] Armendariz MD - 06/02/2020 9:08 AM CDT [facility] Endoscopy Patient Name: Marcello Paz Procedure Date: [...] years ago, Last colonoscopy: January 2015 Providers: Abyb Armendariz MD Referring MD: Naeem Chau MD [...] of Addenda: [address]; [place] [address] Abby Armendariz MD GI PROCEDURE ORDERABLES Final Result from Last 3 Months or Most Recently Relevant to Health Maintenance [place] [address] [address] [place] [address] FEDERAL Advance Directives For more information, please contact: [phone] * Full Code (Latest Code Status on File) Date Activated Date Inactivated Comments 06/02/2020 7:31 AM 06/02/2020 12:04 PM * Full Code Date Activated Date Inactivated Comments 01/22/2015 12:54 PM 01/22/2015 4:37 PM * Full Code Date Activated Date Inactivated Comments 01/07/2012 11:44 AM 01/08/2012 2:01 AM
--- OUTSIDE RECORDS SUMMARY | 2025-02-28 08:38 | XMS_ITS | Clinical Summary ---
Author Organization [facility] Address [address] [facility] [address] [place] [address] Phone Care Team Providers Care Street Light Lamp Cleaner Name Role Phone Jono Fuller MD Primary Care Provider [phone] Allergies No known active allergies Medications cholecalcifero [...] 5.7 Assessment & Plan (11/29/2023 12:36 PM MECHANIC SENIOR): Stable, well controlled; most recent CMP demonstrated serum glucose at 1:05 a.m. which is mildly prediabetic Will continue to monitor Benign hypertension 10/27/2011 Overview (11/25/2021): RECOMMENDED HOME MONITORING TO SBP GOAL <140 AND DBP GOAL <90 Assessment & Plan (06/05/2024 9:06 AM CDT): Chronic. Stable. Plan: Continue Lisinopril 10mg daily Recommend smoking cessation Assessment & Plan (11/29/2023 12:35 PM MECHANIC SENIOR): Stable, well controlled; blood pressure at goal; no chest pain or pressure Continue lisinopril 10 mg daily Assessment & Plan (05/26/2023 9:46 AM CDT): Stable, well controlled, blood pressure at goal today Continue lisinopril 10 mg daily Assessment & Plan (11/26/2022 3:28 PM MECHANIC SENIOR): Stable, well contorlled; bp at target Continue [...] cessation. Assessment & Plan (12/15/2021 2:00 PM MECHANIC SENIOR): Well controlled; blood pressure at target today [...] prn Assessment & Plan (11/29/2023 12:35 PM MECHANIC SENIOR): Stable, well controlled; good response to Cialis 20 mg; will refill today Assessment & Plan (05/26/2023 9:46 AM CDT): Well controlled with cialis Continue Cialis 20 mg daily as needed Assessment & Plan (11/26/2022 3:28 PM MECHANIC SENIOR): Continues to have ED at baseline, good response to PDE5 inhibitors Start tadalafil 20 mg prn Hyperlipidemia LDL goal <130 10/27/2011 Overview (11/25/2021): 01/26 TOTAL 126 - LDL 65 - HDL 43 - TG 90->ON SIMVASTATIN 80 MG DAILY 01/31 [id number] 03/03 [id number] 03/04 [id number] 06/05 [id number] Assessment & Plan (06/05/2024 9:07 AM CDT): Chronic. 06/01 LDL at goal <70. Plan: Continue simvastatin 80mg daily Assessment & Plan (11/29/2023 12:35 PM MECHANIC SENIOR): Stable, well controlled; LDL at goal; HDL low Continue simvastatin 80 mg daily Assessment & Plan (05/26/2023 9:46 AM CDT): Most recent lipid panel demonstrated elevated triglycerides of low HDL; LDL go, decreased from prior Patient given education to help increase HDL cholesterol; which also help with triglyceride levels Assessment & Plan (11/26/2022 3:27 PM MECHANIC SENIOR): Stable, well controlled; LDL at target; no side effects from medication Continue Simvastatin 80 mg daily Assessment & Plan (05/25/2022 11:10 AM CDT): Well controlled, lipids in triglycerides at target Continue simvastatin 80 mg daily Assessment & Plan (12/15/2021 4:38 PM MECHANIC SENIOR): Stable, well controlled; continue simvastatin 80 mg daily Tobacco use disorder 10/27/2011 Overview (11/25/2021): 10/28 COUNSELED TO QUIT Assessment & Plan (06/05/2024 9:10 AM CDT): Chronic. 1ppd. Pt differs trial of cessation at this time. Plan: Supportive care Recommend tobacco use cessation. Assessment & Plan (11/29/2023 12:35 PM MECHANIC SENIOR): Not well controlled; continues to smoke about [...] traveling Assessment & Plan (11/26/2022 3:30 PM MECHANIC SENIOR): Not well controlled; continues to smoke about [...] imaging Assessment & Plan (12/15/2021 4:39 PM MECHANIC SENIOR): To smoke about 1/2 pack per day; [...] on file Legal Sex Male 4:01 PM MECHANIC SENIOR Gender Identity Not on file Sexual Orientation [...] HEPATITIS C ANTIBODY Routine 11/25/2021 12:30 PM MECHANIC SENIOR COLONOSCOPY Routine 06/02/2020 from Last 3 Months [...] data last revised 22. Testing performed by: [facility], [address] [place] [address]., [address] Blood 06/01/2024 9:25 AM CDT 06/01/2024 1:11 PM CDT us Jono Fuller MD LAB BLOOD ORDERABLES Tiffanie giles Result Performing Organization Address City/State/[facility] Co de Phone Number [facility] [place]) [address] [facility] Department [place] [address] * US Abdominal Aortic Aneurysm [...] Tal Grant M.D. CH: [place] Report ID: [id number] Reading Location: [id number] Procedure Note Tal Grant Jr., MD - [...] Tal Grant M.D. CH: [place] Report ID: [id number] Reading Location: [place] [address] Jono Fuller MD IM US PROCEDURES Final R esult * Hepatitis C antibody (11/25/2021 12:30 PM MECHANIC SENIOR) Hep C Ab Nonreactive Nonreactive MIGDALIA ALEMAN ([place]) Comment: Interpretive Data Nonreactive: Antibodies to HCV [...] last revised on 2020. Testing performed by: [facility], [address] [place] [address]., [address] Blood 11/25/2021 12:3 0 PM MECHANIC SENIOR 11/25/2021 2:58 PM MECHANIC SENIOR Jono Fuller MD LAB MICROBIOLOGY - GENERA L ORDERABLES Edited Result - Final MIGDALIA ALEMAN ([place]) [address] [facility] Department [place] [address] * Colonoscopy (06/02/2020) Anatomical Region Laterality Modality Other Historical Provider ENDOSCOPY PROCEDURES Tiffanie l Result from Last 3 Months or Most Recently Relevant to Health Maintenance Insurance [facility] [place] [address] [place] [id number] MEDICARE [facility] FEDERAL MEDICARE [facility] Care Teams Street Light Lamp Cleaner Relationship Specialty Start Date End Date [place] [address] PCP - General Family Medicine 09/22/21
== END 2025-02-15 10:28 | disposition home or self-care (01) ==
PROVIDERS: Emergency Provider Registered Nurse
DX: J40 Bronchitis, not specified as acute or chronic (principal); I10 Essential (primary) hypertension; E78.00 Pure hypercholesterolemia, unspecified
CPT/HCPCS: 99213; G0463